=== PATIENT | female | born 1980 | race Caucasian/White ===

== ENCOUNTER 2021-08-16 14:00 | Outpatient (RCR) | payer MEDICAID, SELFPAY | END 2021-08-16 14:49 | disposition home or self-care (01) | LOC: HO.PT 14:00 | PROVIDERS: PCP Nurse Practitioner Family; Visit Provider Obstetrics & Gynecology Female Pelvic Medicine and Reconstructive Surgery | DX: N30.10 Interstitial cystitis (chronic) without hematuria (principal) | CPT/HCPCS: 97110; 97112; 97140; 97161 ==